=== PATIENT | male | born 1950 | race Caucasian/White ===

== ENCOUNTER 2023-09-24 16:09 | Emergency (ER) | payer OTHER ==
[2023-09-24] MEDS ORDERED: FLUORESCEIN NA 1 EA STRIP ONE (16:16)
[2023-09-24] MEDS ORDERED: TETRACAINE 0.5% OPHTH SOLN 2 ML BOTTLE ONE (16:16)
[2023-09-24 16:21] VITALS: BP 123/86; PULSE 80; RESP 18; TEMP 98; BMI 20.7
[2023-09-24] MEDS: FLUORESCEIN NA 1 EA STRIP OD ONE (16:52)
[2023-09-24] MEDS: TETRACAINE 0.5% HCL 0.6ML DROPPER.BOTTLE OD ONE (17:18)
== END 2023-09-24 19:18 | disposition home or self-care (01) ==
LOC: FER 16:09
DX: S05.01XA Injury of conjunctiva and corneal abrasion without foreign body, right eye, initial encounter (principal); W22.8XXA Striking against or struck by other objects, initial encounter
CPT/HCPCS: 70480-TC; 99284-25